=== PATIENT | female | born 1995 | race African-American/Black ===

== ENCOUNTER 2019-02-02 08:33 | Emergency (ER) | payer OTHER ==
[~2019-02-02] VITALS: Ht 172.7 cm; Wt 75.8 kg
[2019-02-02] MEDS ORDERED: NAPROXEN375 MG PO (09:51)
[2019-02-02] MEDS ORDERED: TRAMADOL 50 MG50 MG PO (09:51)
[2019-02-02 11:20] VITALS: BP 142/74
== END 2019-02-02 11:20 | disposition home or self-care (01) ==
LOC: ER 08:33
DX: S43.084A Other dislocation of right shoulder joint, initial encounter (principal); W18.09XA Striking against other object with subsequent fall, initial encounter; Y93.89 Activity, other specified; Y92.89 Other specified places as the place of occurrence of the external cause; Y99.8 Other external cause status